=== PATIENT | male | born 1985 | race Caucasian/White ===

== ENCOUNTER 2016-05-30 13:33 | Emergency (ER) | payer BC ==
[2016-05-30 15:40] LABS: HEMOGLOBIN 16.7 gm/dl (14.0-17.5); RED BLOOD COUNT 5.41 M/UL (4.20-5.50); WHITE BLOOD COUNT 6.1 K/UL (4.5-11.0)
[2016-05-30 16:14] LABS: BUN/CREATININE RATIO 12 (0-10)
== END 2016-05-30 16:45 | disposition home or self-care (01) ==
LOC: ER1 13:33
PROVIDERS: Physician Assistant
DX: R06.02 Shortness of breath (principal); R07.9 Chest pain, unspecified; R53.83 Other fatigue; F17.200 Nicotine dependence, unspecified, uncomplicated
CPT/HCPCS: 36415; 71020; 80053; 82550; 82553; 83874; 84443; 84484; 85025; 85379; 99285